=== PATIENT | female | born 2000 | race Hispanic/Latino ===

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

== ENCOUNTER 2022-02-15 08:39 | Emergency (ER) | payer OTHER, SELFPAY ==
--- OUTSIDE RECORDS SUMMARY | 2022-02-15 08:43 | XMS REPORT | Continuity of Care Document ---
:2000 Author Organization [facility] t Address [facility] [address] [place] [address] Care Team Providers Name Role Phone PCP, PATIENT DOES NOT HAVE A Primary Care Physician UnavailKYRIE Guardado Attending Clinician Unavailable JONATHAN JIANG Attending Clinician Unavailable SAVANNAH KNOTT Attending Clinician Unavailable Savannah Valverde Attending Clinician Unknown, Attending Attending Clinician Unavailable Megan Coulter Attending Clinician Payers Payer Name Policy Type Policy Number Effective Date Expiration Date [id number] 2022 PREFERRED GENERIC 00:00:00 Problems Condition Condition Condition Status Onset Resolution Last Treating Co mments Source Name Details Category Date Date Treatment Clinician Date No known No known Disease Unive rs active active ity of problems problems [facility] Allergies, Adverse Reactions, Alerts Allergy Allergy Status Severity Reaction(s) Onset Inactive Treating Comm ents Source Name Type Date Date Clinician NO KNOWN Drug Active Univers ALLERGIE Class ity of S [facility] Social History Social Habit Start Date Stop Date Quantity Comments Source Exposure to 2021-09-28 2021-10-08 Not sure [facility]-CoV-2 00:00:00 09:07:00 [facility] (event) Branch Tobacco use and 2021-10-08 2021-10-08 Never used Universit y of exposure 00:00:00 00:00:00 [facility] Alcohol intake 2021-10-08 2021-10-08 Ex-drinker [facility] 00:00:00 00:00:00 (finding) [facility] Sex Assigned At [birth year] Universit y of 00:00:00 00:00:00 [facility] Smoking Status Start Date Stop Date Source Never smoker [facility] Medications Ordered Filled Start Stop Current Ordering Indication Dosage Frequency Signature Comments Components Source Medication Medication Date Date Medication? Clinician (SIG) Name Name amoxicillin No [id number] 875mg Take 1 Univers 875 mg 6-30 -11 tablet by ity of tablet 00:00: 04:59 mouth 2 [place] 00 :00 (two) Medical times [place] daily for 10 days. amoxicillin No [id number] 875mg Take 1 Univers 875 mg 6-30 -11 tablet by ity of tablet 00:00: 04:59 mouth 2 [place] 00 :00 (two) Medical times [place] daily for 10 days. Vital Signs Vital Name Observation Time Observation Value Comments Source Systolic blood 2021-10-08 14:20:00 121 mm[Hg] Univer sity of [facility] Diastolic blood 2021-10-08 14:20:00 84 mm[Hg] Unive rsity of pressure [facility] Heart rate 2021-10-08 14:20:00 69 /min [facility] Body temperature 2021-10-08 14:20:00 37.06 Dnaika [facility] Respiratory rate 2021-10-08 14:20:00 16 /min [facility] Body height 2021-10-08 14:20:00 165.1 cm [facility] Body weight 2021-10-08 14:20:00 95.8 kg [facility] BMI 2021-10-08 14:20:00 35.15 kg/m2 [facility] Body mass index 2021-10-08 14:20:00 97.11 % Unive rsity of (BMI) [Percentile] [place] Med ical Per age and sex Branch Oxygen saturation in 2021-10-08 14:20:00 99 /min [facility] blood by [facility] Pulse oximetry Branch Procedures This patient has no known procedures. Encounters Start End Encounter Admission Attending Care Care Encounter Source Date/Time Date/Time Type Type Clinicians Facility Department ID 2022-02-08 2022-02-08 Outpatient KYRIE ROBB [facility] [id number] [facility] 14:30:00 14:30[facility] 2021-11-18 2021-11-18 Outpatient DEIDRE, ROCHELLE ROCHELLE [id number] [place] 15:15:00 15:15:00 JONATHAN melecio shultz 2021-10-08 2021-10-08 Outpatient Susan KNOTT WYRAÚL [facility] [id number] [facility] 09:20:00 09:42:57 SAVANNAH itgiselle [facility] 2021-10-08 2021-10-08 Urgent Savannah Knott [facility] [id number] [facility] 09:20:00 09:40:00 Care Unknown, [facility] [id number] ity of [place] [id number] Kevin as CHHAYA?BLEA [id number] [address] MEDICAL OFFICE BUILDING 2021-10-08 2021-10-08 Brian Jiang [facility] [id number] Univers 00:00:00 00:00:00 (Out) [facility] [id number] it y of [place] [id number] Kevin as CHHAYA?BLEA [phone] [address] MEDICAL OFFICE BUILDING Results This patient has no known results.
[2022-02-15] MEDS ORDERED: METHYLPREDNISOLONE 125 MG INJ ONE (09:12)
[2022-02-15] MEDS ORDERED: FAMOTIDINE 20 MG TAB ONE (09:13)
[2022-02-15] MEDS ORDERED: DIPHENHYDRAMINE 50 MG/ML VIAL ONE (09:13)
--- NOTE | 2022-02-15 09:58 | EDPHYS ---
Physician Documentation [facility] Name: Lizeth Santoyo Age: 21 yrs Sex: Female : 2000 Arrival Date: 02/15/2022 Time: 08:41 Bed 16 Private MD: ED Physician Lavon Asif HPI: 02/15 09:00 This 21 yrs old Female presents to ER via Ambulatory with complaints of Rash, jh7 Allergic Reaction. 09:00 The patient's rash thought to be caused by allergies, Hives. The rash is located on the jh7 body diffusely. The rash can be described as urticarial. Onset: The symptoms/episode began/occurred last night, and became worse this morning. Associated signs and symptoms: Pertinent positives: itching, Pertinent negatives: difficulty breathing, fever, nausea, swelling of lips, swelling of throat, swelling of tongue, vomiting, wheezing. 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 - Social history:: Smoking status: Patient denies any tobacco usage or history of. ROS: 09:00 Constitutional: Negative for fever, chills, and weight loss, Eyes: Negative for injury, jh7 pain, redness, and discharge, ENT: Negative for injury, pain, and discharge, Neck: Negative for injury, pain, and swelling, Cardiovascular: Negative for chest pain, palpitations, and edema, Respiratory: Negative for shortness of breath, cough, wheezing, and pleuritic chest pain, Back: Negative for injury and pain, MS/Extremity: Negative for injury and deformity, Neuro: Negative for headache, weakness, numbness, tingling, and seizure. 09:00 Skin: Positive for rash. 09:00 All other systems are negative. Exam: 09:00 Constitutional: This is a well developed, well nourished patient who is awake, alert, jh7 and in no acute distress. Head/Face: Normocephalic, atraumatic. ENT: Nares patent. No nasal discharge, no septal abnormalities noted. Tympanic membranes are normal and external auditory canals are clear. Oropharynx with no redness, swelling, or masses, exudates, or evidence of obstruction, uvula midline. Mucous membranes moist. Neck: Trachea midline, no thyromegaly or masses palpated, and no cervical lymphadenopathy. Supple, full range of motion without nuchal rigidity, or vertebral point tenderness. No Meningismus. Cardiovascular: Regular rate and rhythm with a normal S1 and S2. No gallops, murmurs, or rubs. Normal PMI, no JVD. No pulse deficits. Respiratory: Lungs have equal breath sounds bilaterally, clear to auscultation and percussion. No rales, rhonchi or wheezes noted. No increased work of breathing, no retractions or nasal flaring. Back: No spinal tenderness. No costovertebral tenderness. Full range of motion. Skin: Warm, dry with normal turgor. Normal color with no rashes, no lesions, and no evidence of cellulitis. Neuro: Awake and alert, GCS 15, oriented to person, place, time, and situation. Normal gait. 09:00 Skin: urticaria, and is diffusely located. Vital Signs: 09:00 BP 134 / 101; Pulse 79; Resp 16; Temp 97.5; Pulse Ox 100% ; Weight 90.72 kg; Height 5 mb8 ft. 4 in. (162.56 cm); Pain 0/10; 09:00 Body Mass Index 34.33 (90.72 kg, 162.56 cm) mb8 MDM: 08:44 Patient medically screened. [facility] 10:00 Differential diagnosis: allergic reaction. Data reviewed: vital signs, nurses notes. [facility] Data interpreted: Pulse oximetry: is 100 %. Interpretation: normal. Counseling: I had a detailed discussion with the patient and/or guardian regarding: the historical points, exam findings, and any diagnostic results supporting the discharge/admit diagnosis, to return to the emergency department if symptoms worsen or persist or if there are any questions or concerns that arise at home. Response to treatment: the patient's symptoms have markedly improved after treatment. Administered Medications: 09:22 Drug: Benadryl (diphenhydrAMINE) 25 mg Route: IM; Site: left gluteus; 1 10:04 Follow up: Response: No adverse reaction 1 09:23 Drug: Pepcid (famotidine) 20 mg Route: PO; ll1 10:04 Follow up: Response: No adverse reaction 1 09:23 Drug: SOLU-Medrol (methylPREDNISolone sodium succinate) 125 mg Route: IM; Site: right ll1 gluteus; 10:04 Follow up: Response: No adverse reaction ll1 Disposition: 17:39 Co-signature as Attending Physician, Lavon Asif MD. rn Disposition Summary: 02/15/22 09:58 Discharge Ordered Location: Home [facility] Problem: new [facility] Symptoms: have improved [facility] Condition: Stable [facility] Diagnosis - Allergic urticaria [facility] Followup: [facility] - With: Private Physician - When: 2 - 3 days - Reason: Recheck today's complaints Discharge Instructions: - Discharge Summary Sheet [facility] - Allergies, Adult [facility] - Hives [facility] Forms: - School release form 1 - Medication Reconciliation Form [facility] - Thank You Letter [facility] - Prescription Opioid Use [facility] Prescriptions: - Hydroxyzine HCl 25 mg Oral Tablet - take 1 tablet by ORAL route every 6 hours As needed; 12 tablet; Refills: 0, [facility] Product Selection Permitted - Medrol (Pranav) 4 mg Oral Tablets, Dose Pack - take 1 tablet by ORAL route as directed - follow package instructions; 1 [facility] packet; Refills: 0, Product Selection Permitted Signatures: Lavon Asif MD MD rn Lewis, Lynsay, RN RN 1 Nelsy Lynch FNP [place] [id number] Taj Steve RN RN mb8
--- NOTE | 2022-02-15 09:58 | ER ---
Nurse's Notes [facility] Name: Lizeth Santoyo Age: 21 yrs Sex: Female : 2000 Arrival Date: 02/15/2022 Time: 08:41 Bed 16 Private MD: Diagnosis: Allergic urticaria Presentation: 02/15 09:00 Chief complaint: Patient states: rash since yesterday morning on hands, arms, neck and mb8 legs. Patient started new medications 2 weeks ago terbinafine and bupropion. Coronavirus screen: Vaccine status: Patient reports receiving the 2nd dose of the covid vaccine. Ebola Screen: Patient negative for fever greater than or equal to 101.5 degrees Fahrenheit, and additional compatible Ebola Virus Disease symptoms Patient denies exposure to infectious person. Patient denies travel to an Ebola-affected area in the 21 days before illness onset. Anaphylaxis evaluation, the patient reports or I have noted the following symptoms which indicate a significant risk of anaphylaxis: urticaria. Initial Sepsis Screen: Does the patient meet any 2 criteria? No. Patient's initial sepsis screen is negative. Does the patient have a suspected source of infection? No. Patient's initial sepsis screen is negative. Risk Assessment: Do you want to hurt yourself or someone else? Patient reports no desire to harm self or others. Onset of symptoms was February 14, 2022. 09:00 Method Of Arrival: Ambulatory mb8 09:00 Acuity: JASS 4 mb8 09:58 Onset: The symptoms/episode began/occurred yesterday. ll1 Triage Assessment: 09:04 General: Appears in no apparent distress. comfortable, Behavior is calm, cooperative, mb8 appropriate for age. Pain: Denies pain. 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 - Social history:: Smoking status: Patient denies any tobacco usage or history of. Screenin:57 Abuse screen: Denies threats or abuse. Nutritional screening: No deficits noted. ll1 Tuberculosis screening: No symptoms or risk factors identified. Fall Risk Total Morgan Fall Scale indicates No Risk (0-24 pts). Assessment: 09:57 Reassessment: No changes from previously documented assessment. Patient and/or family ll1 updated on plan of care and expected duration. Pain level reassessed. WOLFGANG Clements at bedside. Respiratory: Airway is patent Respiratory effort is even, unlabored, Breath sounds are clear bilaterally. 10:04 Reassessment: No changes from previously documented assessment. Patient and/or family ll1 updated on plan of care and expected duration. Pain level reassessed. Patient is alert, oriented x 3, equal unlabored respirations, skin warm/dry/pink. Vital Signs: 09:00 BP 134 / 101; Pulse 79; Resp 16; Temp 97.5; Pulse Ox 100% ; Weight 90.72 kg; Height 5 mb8 ft. 4 in. (162.56 cm); Pain 0/10; 09:00 Body Mass Index 34.33 (90.72 kg, 162.56 cm) 8 ED Course: 08:41 Patient arrived in ED. am2 08:44 [facility] 7 08:44 Lavon Asif MD is Attending Physician. 7 09:03 Triage completed. mb8 09:04 Arm band placed on. mb8 09:05 Carmen Garvin, RN is Primary Nurse. ll1 09:05 Patient placed in an exam room, on a stretcher. 1 09:57 Patient has correct armband on for positive identification. Bed in low position. Call ll1 light in reach. Cardiac monitoring not applicable on this patient. 09:58 No provider procedures requiring assistance completed. Patient did not have IV access ll1 during this emergency room visit. Administered Medications: 09:22 Drug: Benadryl (diphenhydrAMINE) 25 mg Route: IM; Site: left gluteus; ll1 10:04 Follow up: Response: No adverse reaction ll1 09:23 Drug: Pepcid (famotidine) 20 mg Route: PO; ll1 10:04 Follow up: Response: No adverse reaction 1 09:23 Drug: SOLU-Medrol (methylPREDNISolone sodium succinate) 125 mg Route: IM; Site: right ll1 gluteus; 10:04 Follow up: Response: No adverse reaction ll1 Medication: 09:57 VIS not applicable for this client. ll1 Outcome: :58 Discharge ordered by . 7 10:04 Discharged to home ambulatory. ll1 10:04 Condition: stable 10:04 Discharge instructions given to patient, Instructed on discharge instructions, follow up and referral plans. medication usage, Demonstrated understanding of instructions, follow-up care, medications, Prescriptions given X 2. 10:05 Patient left the ED. ll1 Signatures: María Madrid Lynsay, RN RN 1 Nelsy Lynch FNP FNP 7 Taj Steve RN RN mb8
[2022-02-15 11:33] VITALS: BP 134/101; TEMP 97.5; O2SAT 100
== END 2022-02-15 10:05 | disposition home or self-care (01) ==
LOC: ER 08:39
DX: L50.0 Allergic urticaria (principal)
CPT/HCPCS: 96372; 99283; J1200; J2930

== ENCOUNTER 2022-04-09 13:37 | Emergency (ER) | payer OTHER ==
--- OUTSIDE RECORDS SUMMARY | 2022-04-09 13:41 | XMS REPORT | Continuity of Care Document ---
:[address] [facility] t Address [address] [place] [address] Care Team Providers Name Role Phone PCP, PATIENT DOES NOT HAVE A Primary Care Physician UnavailKYRIE Guardado Attending Clinician Unavailable Kyrie Chapin MD Attending Clinician Doctor Unassigned, [place] Attending Clinician Unavailable JONATHAN JIANG Attending Clinician Unavailable SAVANNAH KNOTT Attending Clinician Unavailable Savannah Valverde Attending Clinician Unknown, Attending Attending Clinician Unavailable Megan Coulter Attending Clinician Payers Payer Name Policy Type Policy Number Effective Date Expiration Date S ource Problems Condition Condition Condition Status Onset Resolution Last Treating Co mments Source Name Details Category Date Date Treatment Clinician Date Encounter Encounter Disease Active 2021-04 Uni vers for oral for oral 06-07 [place] Medical initial initial Branch prescripti prescripti on on No known No known Disease Unive rs active active ity of problems problems [facility] Allergies, Adverse Reactions, Alerts Allergy Allergy Status Severity Reaction(s) Onset Inactive Treating Comm ents Source Name Type Date Date Clinician NO KNOWN Drug Active Univers ALLERGIE Class ity of S [facility] Social History Social Habit Start Date Stop Date Quantity Comments Source Exposure to 2022-03-27 2022-04-06 Not sure [facility] SARS-CoV-2 00:00:00 09:01:00 [facility] (event) [place] Alcohol Comment 2022-04-06 2022-04-06 occasionally Univers ity of 00:00:00 00:00:00 [facility] Alcohol intake 2022-04-06 2022-04-06 Current drinker of Un iversity of 00:00:00 00:00:00 alcohol (finding) [facility] Tobacco use and 2021-10-08 2021-10-08 Smokeless tobacco Un iversity of exposure 00:00:00 00:00:00 non-user [facility] Sex Assigned At [birth year] Universit y of 00:00:00 00:00:00 [facility] Smoking Status Start Date Stop Date Source Never smoked tobacco [facility] Medications Ordered Filled Start Stop Current Ordering Indication Dosage Frequency Signature Comments Components Source Medication Medication Date Date Medication? Clinician (SIG) Name Name linda 2021-04 Yes [id number] 500mg Take 1 Univers n 500 mg 2-28 tablet by ity of tablet 00:00: mouth in [place] 00 the Medical morning. Branch buPROPion 2021-04 Yes 150mg Take 150 Uni vers XL 150 mg 2-27 mg by ity of 24 hr 09:38: mouth in [place] tablet 35 the Medical morning. [place] buPROPion 2021-04 Yes 150mg Take 150 Uni vers XL 150 mg 2-27 mg by ity of 24 hr 09:38: mouth in [place] tablet 35 the Medical morning. [place] buPROPion 2021-04 Yes 150mg Take 150 Uni vers XL 150 mg 2-27 mg by ity of 24 hr 09:38: mouth in [place] tablet 35 the Medical morning. Branch norgestimat 2021-04 Yes [id number] 1{tbl} Take 1 Univers e-ethinyl 2-27 tablet by ity o f estradioL [place] 0.25[place] the Medical mg-mcg per morning. Branc h tablet norgestimat 2021-04 Yes [id number] 1{tbl} Take 1 Univers e-ethinyl 2-27 tablet by ity o f estradioL [place] 0.25[place] the Medical mg-mcg per morning. Branc h tablet norgestimat 2021-04 Yes [id number] 1{tbl} Take 1 Univers e-ethinyl 2-27 tablet by ity o f estradioL 00:00: mouth in [facility] s 0.25-35 00 the Medical mg-mcg per morning. Branc h tablet No known No No known Unive rs medications 6-30 medication it y of 09:30: s [address] amoxicillin 2021- No [id number] 875mg Take 1 Univers 875 mg 6-30 07-11 tablet by ity of tablet 00:00: 04:59 mouth 2 [place] 00 :00 (two) Medical times [place] daily for 10 days. amoxicillin 2021- No [id number] 875mg Take 1 Univers 875 mg 6-30 -11 tablet by ity of tablet 00:00: 04:59 mouth 2 [place] 00 :00 (two) Medical times [place] daily for 10 days. Immunizations Ordered Filled Immunization Date Status Comments [facility] e Immunization Name Name Influenza Virus 2022-04-06 Completed Universit y of Vaccine Quad IM, 00:00:00 [facility] dical Preserv and ABX Branch Free 6 MO-64 YRS Influenza Virus 2022-04-06 Completed Universit y of Vaccine Quad IM, 00:00:00 [facility] dical Preserv and ABX Branch Free 6 MO-64 YRS Influenza Virus 2022-04-06 Completed Universit y of Vaccine Quad IM, 00:00:00 [facility] dical Preserv and ABX Branch Free 6 MO-64 YRS SARS-COV-2 COVID-19 2020-11-21 Completed Unive rsity of PFIZER VACCINE 00:00:00 [place] [facility] Vital Signs Vital Name Observation Time Observation Value Comments Source Systolic blood 2022-04-06 15:35:00 138 mm[Hg] Univer sity of pressure [facility] Diastolic blood 2022-04-06 15:35:00 83 mm[Hg] Unive rsity of pressure [facility] Heart rate 2022-04-06 15:35:00 102 /min [facility] Body temperature 2022-04-06 15:35:[address] [facility] Respiratory rate 2022-04-06 15:35:00 18 /min [facility] Body height 2022-04-06 15:35:00 167.6 cm Universi [facility] Body weight 2022-04-06 15:35:00 92.171 kg Universi ty [facility] BMI 2022-04-06 15:35:00 32.80 kg/m2 Universi [facility] Systolic blood 2021-10-08 14:20:00 121 mm[Hg] Univer sity of pressure [facility] Diastolic blood 2021-10-08 14:20:00 84 mm[Hg] Unive rsity of pressure [facility] Heart rate 2021-10-08 14:20:00 69 /min Universi [facility] Body temperature 2021-10-08 14:20:00 37.06 Danika [facility] Res[facility] rate 2021-10-08 14:20:00 16 /min [facility] Body height 2021-10-08 14:20:00 165.1 cm Universi [facility] Body weight 2021-10-08 14:20:00 95.8 kg Universi [facility] BMI 2021-10-08 14:20:00 [facility]15 [facility] Body mass index 2021-10-08 14:20:00 97.11 % Unive rsity of (BMI) [Percentile] [facility] [place] ical Per age and sex Branch Oxygen saturation in 2021-10-08 14:20:00 99 /min [facility] Arterial blood by [facility] Pulse oximetry Branch Procedures Procedure Date / Time Performed Performing Clinician Sourc e FLU VACC (), 2022-04-06 15:55:38 Kyrie Chapin [facility] 6 MO-64 YRS, .5ML, IM, Medical B ranch QUAD (FLUCELVAX) ASSIGNMENT OF BENEFITS 2022-04-06 15:03:14 Doctor Unassigned, No [facility] POCT TEST 2022-04-06 00:00:00 Kyrie hCapin [facility] Encounters Start End Encounter Admission Attending Care Care Encounter Source Date/Time Date/Time Type Type Clinicians Facility Department ID 2022-04-07 2022-04-07 Case Kyrie Chapin [facility] [id number] Univers 00:00:00 00:00:00 Management Cam LUPE [id number] [facility] [id number] [id number] Fl dical [facility] [address] [facility] 2022-04-06 2022-04-06 Office Kyrie Chapin [facility] [id number] Univers 09:00:00 10:01:51 Visit Cam LUPE [id number] i ty [facility] [id number] [id number] Fl dical [address] 2022-04-06 2022-04-06 Outpatient R DARI KYRIE [facility] [id number] Univers 09:00:00 10:01:51 ity of [facility] 2022-04-06 2022-04-06 Orders Doctor VIDYA [id number] Univers 00:00:00 00:00:00 Only Unassigned, VIKY [id number] ity of [place] [facility] [id number] Kevin as [id number] [address] 2022-02-08 2022-02-08 Outpatient R KYRIE CHAPIN [facility] [id number] Univers 14:30:00 14:30:00 ity of [facility] 2021-11-18 2021-11-18 Outpatient ROCHELLE JIANG [id number] [place] 15:15:00 15:15:00 JONATHAN shultz 2021-10-08 2021-10-08 Outpatient R NIKOS [facility] [id number] Univers 09:20:00 09:42:57 RANBENEDICT ity of [facility] 2021-10-08 2021-10-08 Urgent Savannah Knott [facility] [id number] Univers 09:20:00 09:40:00 Care Unknown, Attending HEALTH [id number] ity of [place] [id number] Kevin as CHHAYA?BLEA [id number] [address] MEDICAL OFFICE BUILDING 2021-10-08 2021-10-08 Letter Apolinar [facility] [id number] Univers 00:00:00 00:00:00 (Out) [employer] [facility] [id number] it y of [place] [id number] Kevin as CHHAYA?BLEA [id number] [address] MEDICAL OFFICE BUILDING Results Test Description Test Time Test Comments Results Result Comments Source POCT TEST 2022-04-06 15:52:00 Test Item Value Reference Range Interpretation Comme nts POCT PREG (test code = 1605) Negative On board controls acceptable with C Line (test code = 3574) Yes POCT PREG LOT # (test code = 3575) POCT PREG TEST DATE (test code = 3576) [facility] [id number] 15:52:00 Test Item Value Reference Range Interpretation Comments POCT PREG (test code = 1605) Negative On board controls acceptable with C Yes Line (test code = 3574) POCT PREG LOT # (test code = 3575) POCT PREG TEST DATE (test code = 3576) [facility]
[2022-04-09 16:20] LABS: Urine Bacteria None Seen /HPF (<20); Urine Crystals Unidentified Few /HPF (None Seen); Urine Mucus 1+ /HPF (None Seen); Urine RBC >50 /HPF (None Seen); Urine WBC Clump Few /HPF (None Seen)
--- NOTE | 2022-04-09 16:35 | EDPHYS ---
Physician Documentation [facility] Name: Lizeth Santoyo Age: 21 yrs Sex: Female : 2000 Arrival Date: 04/09/2022 Time: 13:41 Bed 11 Private MD: ED Physician Lavon Asif HPI: 04/09 14:56 This 21 yrs old Female presents to ER via Ambulatory with complaints of Flank snw Pain. 14:56 The patient complains of pain in the low back area and right mid back. The pain does snw not radiate. Onset: The symptoms/episode began/occurred gradually, 3 day(s) ago, and became persistent. Modifying factors: The symptoms are alleviated by nothing. the symptoms are aggravated by nothing. Associated signs and symptoms: The patient has no apparent associated signs or symptoms. Severity of pain: At its worst the pain was mild. It is unknown whether or not the patient has had similar symptoms in the past. The patient has not recently seen a physician. Historical: - Allergies: 14:09 PENICILLINS; hb ROS: 14:55 Constitutional: Negative for fever, chills, and weight loss, Eyes: Negative for injury, snw pain, redness, and discharge, ENT: Negative for injury, pain, and discharge, Neck: Negative for injury, pain, and swelling, Cardiovascular: Negative for chest pain, palpitations, and edema, Respiratory: Negative for shortness of breath, cough, wheezing, and pleuritic chest pain, Back: Negative for injury and pain, : Negative for injury, bleeding, discharge, and swelling, MS/Extremity: Negative for injury and deformity, Skin: Negative for injury, rash, and discoloration, Neuro: Negative for headache, weakness, numbness, tingling, and seizure. 14:55 Abdomen/GI: Positive for abdominal pain, Negative for nausea, vomiting, and diarrhea, constipation. Exam: 14:55 Constitutional: This is a well developed, well nourished patient who is awake, alert, snw and in no acute distress. Head/Face: Normocephalic, atraumatic. Eyes: Pupils equal round and reactive to light, extra-ocular motions intact. Lids and lashes normal. Conjunctiva and sclera are non-icteric and not injected. Cornea within normal limits. Periorbital areas with no swelling, redness, or edema. ENT: Nares patent. No nasal discharge, no septal abnormalities noted. Tympanic membranes are normal and external auditory canals are clear. Oropharynx with no redness, swelling, or masses, exudates, or evidence of obstruction, uvula midline. Mucous membranes moist. Neck: Trachea midline, no thyromegaly or masses palpated, and no cervical lymphadenopathy. Supple, full range of motion without nuchal rigidity, or vertebral point tenderness. No Meningismus. Chest/axilla: Normal chest wall appearance and motion. Nontender with no deformity. No lesions are appreciated. Cardiovascular: Regular rate and rhythm with a normal S1 and S2. No gallops, murmurs, or rubs. Normal PMI, no JVD. No pulse deficits. Respiratory: Lungs have equal breath sounds bilaterally, clear to auscultation and percussion. No rales, rhonchi or wheezes noted. No increased work of breathing, no retractions or nasal flaring. Abdomen/GI: Soft, non-tender, with normal bowel sounds. No distension or tympany. No guarding or rebound. No evidence of tenderness throughout. Back: No spinal tenderness. No costovertebral tenderness. Full range of motion. Skin: Warm, dry with normal turgor. Normal color with no rashes, no lesions, and no evidence of cellulitis. MS/ Extremity: Pulses equal, no cyanosis. Neurovascular intact. Full, normal range of motion. Neuro: Awake and alert, GCS 15, oriented to person, place, time, and situation. Cranial nerves II-XII grossly intact. Motor strength 5/5 in all extremities. Sensory grossly intact. Cerebellar exam normal. Normal gait. Psych: Awake, alert, with orientation to person, place and time. Behavior, mood, and affect are within normal limits. Vital Signs: 14:07 BP 129 / 79; Pulse 88; Resp 16; Temp 98.1; Pulse Ox 100% on R/A; Weight 90.72 kg; hb Height 5 ft. 4 in. (162.56 cm); Pain 9/10; 14:07 Body Mass Index 34.33 (90.72 kg, 162.56 cm) hb MDM: 14:49 Patient medically screened. snw 16:37 Data reviewed: vital signs, nurses notes. Data interpreted: Pulse oximetry: on room air snw is 100 %. Interpretation: normal. Counseling: I had a detailed discussion with the patient and/or guardian regarding: the historical points, exam findings, and any diagnostic results supporting the discharge/admit diagnosis, lab results, the need for outpatient follow up, to return to the emergency department if symptoms worsen or persist or if there are any questions or concerns that arise at home. Special discussion: Based on the patient's Hx, exam, and Dx evaluation, there is no indication for emergent surgery or inpatient Tx. It is understood by the patient/guardian that if the Sx's persist or worsen they need to return immediately for re-evaluation. Based on the history and exam findings, there is no indication for further emergent testing or inpatient evaluation. I discussed with the patient/guardian the need to see the primary care provider for further evaluation of the symptoms. 04/09 14:14 Order name: Urine Microscopic Only; Complete Time: 16:34 snw 04/09 14:14 Order name: Urine Dipstick-Ancillary (obtain specimen); Complete Time: 16:12 snw 04/09 14:14 Order name: Urine Test (obtain specimen); Complete Time: 16:12 snw Administered Medications: 16:57 Drug: Macrobid (nitrofurantoin) 100 mg Route: PO; hb Disposition: 17:05 Co-signature as Attending Physician, Lavon Asif MD. rn Disposition Summary: 04/09/22 16:35 Discharge Ordered Location: Home snw Condition: Stable snw Diagnosis - UTI/ Urinary tract infection, site not specified snw Followup: snw - With: Emergency Department - When: As needed - Reason: Worsening of condition Followup: snw - With: Private Physician - When: 2 - 3 days - Reason: Recheck today's complaints, Continuance of care, Re-evaluation by your physician Discharge Instructions: - Discharge Summary Sheet snw - Urinary Tract Infection, Adult snw - Rehydration, Adult snw Forms: - Medication Reconciliation Form snw - Thank You Letter snw - Antibiotic Education snw - Prescription Opioid Use snw - Work release form snw Prescriptions: - Mobic 7.5 mg Oral Tablet - take 1 tablet by ORAL route once daily take with food; 20 tablet; Refills: 0, snw Product Selection Permitted - Macrobid 100 mg Oral Capsule - take 1 capsule by ORAL route every 12 hours for 10 days; 20 capsule; Refills: snw 0, Product Selection Permitted Signatures: Dispatcher [employer] EDMS Gayle Miller, SUPERVISOR TUBING-C SUPERVISOR TUBING-Csnw Lavon Asif MD MD rn Baxter, Heather, RN RN hb
--- NOTE | 2022-04-09 16:35 | ER ---
Nurse's Notes [facility] Name: Lizeth Santoyo Age: 21 yrs Sex: Female : 2000 Arrival Date: 04/09/2022 Time: 13:41 Bed 11 Private MD: Diagnosis: UTI/ Urinary tract infection, site not specified Presentation: 04/09 14:07 Chief complaint: Sharp intermittent flank pain that radiates to right shoulder and hb upper abdomen x 3 days. Denies N/V/D/urinary symptoms. Coronavirus screen: At this time, the client does not indicate any symptoms associated with coronavirus-19. Ebola Screen: No symptoms or risks identified at this time. Initial Sepsis Screen: Does the patient meet any 2 criteria? No. Patient's initial sepsis screen is negative. Does the patient have a suspected source of infection? No. Patient's initial sepsis screen is negative. Risk Assessment: Do you want to hurt yourself or someone else? Patient reports no desire to harm self or others. Onset of symptoms was April 06, 2022. 14:07 Method Of Arrival: Ambulatory hb 14:07 Acuity: JASS 3 hb Historical: - Allergies: 14:09 PENICILLINS; hb Vital Signs: 14:07 BP 129 / 79; Pulse 88; Resp 16; Temp 98.1; Pulse Ox 100% on R/A; Weight 90.72 kg; hb Height 5 ft. 4 in. (162.56 cm); Pain 9/10; 14:07 Body Mass Index 34.33 (90.72 kg, 162.56 cm) hb ED Course: 13:41 Patient arrived in ED. mr 13:52 Gayle Miller FNP-C is PHCP. snw 13:52 Lavon Asif MD is Attending Physician. snw 14:09 Triage completed. hb 14:09 Arm band placed on. hb 16:03 June Weldon, RN is Primary Nurse. iw 16:12 Urine Culture Sent. mm9 16:12 Urine Microscopic Only Sent. mm9 16:13 Urine collected: clean catch specimen, blood tinged. mm9 Administered Medications: 16:57 Drug: Macrobid (nitrofurantoin) 100 mg Route: PO; hb Outcome: 16:35 Discharge ordered by . snw 16:58 Patient left the ED. hb 16:58 Discharged to home ambulatory. hb 16:58 Condition: stable 16:58 Discharge instructions given to patient, Instructed on discharge instructions, follow up and referral plans. medication usage, Demonstrated understanding of instructions, follow-up care, medications, Prescriptions given X 2. Signatures: Gayle Miller, WOLFGANG-C PHARMACY GENERAL MANAGER-Desmondw Bharti Sánchez Irene RN DENISSE Lorrie Valadez RN RN hb Martinez, Maria mm9
[2022-04-09] MEDS ORDERED: NITROFURAN MACRO 100 MG CAP PO ONE (16:55)
[2022-04-09 17:08] VITALS: BP 129/79; TEMP 98.1; O2SAT 100
== END 2022-04-09 16:58 | disposition home or self-care (01) ==
LOC: ER 13:37
DX: N39.0 Urinary tract infection, site not specified (principal)
CPT/HCPCS: 81015; 99283